=== PATIENT | female | born 1980 | race Two or more races ===

== ENCOUNTER 2018-06-30 19:00 | Emergency (ER) | payer OTHER ==
--- NOTE | 2018-06-30 19:12 | EDPHY ---
H & P Smoking Status: Never smoked Time Seen by Provider: 06/30/18 19:10 HPI/ROS: CHIEF COMPLAINT: Syncope HISTORY OF PRESENT ILLNESS: The patient is a 37-year-old female with no significant past medical history here chief complaint of nausea vomiting diarrhea and 2 syncopal events this afternoon. She states that early this afternoon she started with diffuse nonbloody nonbilious non purulent emesis and diarrhea. He reports that her 3-year-old child has also had vomiting and diarrhea this week. She denies any fever or chills or pain with urination. She denies . She has no history of inflammatory bowel. She denies pain with urination or urinary frequency. She has not use any drugs or alcohol. She is not take any prescribed medication. REVIEW OF SYSTEMS: Constitutional: No fever, no chills. Eyes: No discharge. ENT: No sore throat. Cardiovascular: No chest pain, no palpitations. Respiratory: No cough, no shortness of breath. Gastrointestinal: No abdominal pain, + vomiting. Genitourinary: No hematuria. Musculoskeletal: No back pain. Skin: No rashes. Neurological: No headache. (Aric Mariee) Physical Exam: General Appearance: Alert and no distress. ENT: normal dentition. No tonsillar exudate or swelling. Eyes: Pupils equal and round no injection. Respiratory: Chest is nontender, lungs are clear to auscultation. Cardiac: regular rate and rhythm. No lower extremity edema Gastrointestinal: Abdomen is soft and nontender, no masses, bowel sounds normal. Musculoskeletal: Neck is supple and nontender. Extremities have full range of motion and are nontender without deformity Skin: No rashes or lesions. Neuro: Cranial nerves grossly intact. Ambulatory. (Aric Mariee) Constitutional: Initial Vital Signs Temperature (C) 36.5 C 06/30/18 19:02 Heart Rate 55 L 06/30/18 19:02 Respiratory Rate 06/30/18 19:02 Blood Pressure 73/41 L 06/30/18 19:02 O2 Sat (%) 98 06/30/18 19:02 O2 Delivery Mode Room Air Allergies/Adverse Reactions: No Known Allergies Allergy (Verified 06/30/18 19:02) Home Medications: Medication Instructions Recorded Promethazine HCl [Phenergan 12.5mg 12.5 mg PO Q8 #12 tablet 06/30/18 tab] Medical Decision Making ED Course/Re-evaluation: A 37-year-old female here with 2 syncopal events associated with vomiting and diarrhea today. EKG shows no arrhythmia or signs of WPW, Brugada or ischemia. She is alert and oriented in no acute distress. She feels significantly improved after 2 L of normal saline. She is given no antiemetics and is tolerating orals at time of discharge. This is likely syncopal event due to vomiting and dehydration. I considered acute renal injury, hypovolemia, sepsis , pulmonary embolism, cardiac arrhythmia. (Aric Mariee) Other Provider: The patient was evaluated and managed by the Physician Hemotherapist. I discussed the patient's presentation and course with the midlevel provider with them and agree with the evaluation. My co-signature indicates that I have reviewed this chart and I agree with the findings and plan of care as documented. I am the secondary supervising physician. Patient had 2 episodes of syncope, both related to active vomiting. Her children were ill with vomiting and diarrhea also. EKG demonstrates slightly prolonged QTs. Patient will be discharged with Phenergan and not Zofran to use for her nausea vomiting. (Nina Segal) - Data Points Laboratory Results: Laboratory Results 06/30/18 19:20 06/30/18 19:20 06/30/18 06/30/18 06/30/18 19:20 19:20 19:20 WBC 14.23 10^3/uL H 10^3/uL (3.80-9.50) RBC 4.65 10^6/uL 10^6/uL (4.18-5.33) Hgb 14.8 g/dL g/dL (12.6-16.3) Hct 43.4 % % (38.0-47.0) MCV 93.3 fL fL (81.5-99.8) MCH 31.8 pg pg (27.9-34.1) MCHC 34.1 g/dL g/dL (32.4-36.7) RDW 12.7 % % (11.5-15.2) Plt Count 293 10^3/uL 10^3/uL (150-400) MPV 9.7 fL fL (8.7-11.7) Neut % (Auto) 88.5 % H % (39.3-74.2) Lymph % (Auto) 6.0 % L % (15.0-45.0) [place] % (Auto) 4.6 % % (4.5-13.0) Eos % (Auto) 0.3 % L % (0.6-7.6) Baso % (Auto) 0.2 % L % (0.3-1.7) Nucleat RBC Rel Count 0.0 % % (0.0-0.2) Absolute Neuts (auto) 12.58 10^3/uL H 10^3/uL (1.70-6.50) Absolute Lymphs (auto) 0.86 10^3/uL L 10^3/uL (1.00-3.00) Absolute Monos (auto) 0.66 10^3/uL 10^3/uL (0.30-0.80) Absolute Eos (auto) 0.04 10^3/uL 10^3/uL (0.03-0.40) Absolute Basos (auto) 0.03 10^3/uL 10^3/uL (0.02-0.10) Absolute Nucleated RBC 0.00 10^3/uL 10^3/uL (0-0.01) Immature Gran % 0.4 % % (0.0-1.1) Immature Gran # 0.06 10^3/uL 10^3/uL (0.00-0.10) Sodium 137 mEq/L mEq/L (135-145) Potassium 3.6 mEq/L mEq/L (3.5-5.2) Chloride 102 mEq/L mEq/L (97-110) Carbon Dioxide 24 mEq/l mEq/l (22-31) Anion Gap 11 mEq/L mEq/L (6-14) BUN 21 mg/dL mg/dL (7-23) Creatinine 1.0 mg/dL mg/dL (0.6-1.0) Estimated GFR > 60 Glucose 131 mg/dL H mg/dL (70-100) Calcium 9.1 mg/dL mg/dL (8.5-10.4) Beta HCG, Qual NEGATIVE Medications Given: Discontinued Medications Sodium Chloride (Ns) 1,000 mls @ 0 mls/hr IV ONCE ONE PRN Reason: Wide Open Stop: 06/30/18 19:24 Last Admin: 06/30/18 19:29 Dose: 1,000 mls Departure - Departure Disposition: Home, Routine, Self-Care Clinical Impression: Dehydration, Syncope, Nausea, Prolonged QT interval Condition: Good Instructions: Syncope (ED), Acute Nausea and Vomiting (ED) Additional Instructions: Please follow up with her primary care doctor in the next 2-3 days to discuss the results from the emergency rooms today and you're EKG. If you have continued syncopal events at home or are unable to tolerate fluids or feel worse in any way please return to the ER for further evaluation Referrals: Federica Kevin MD [Primary Care Provider] - As per Instructions Prescriptions: Promethazine HCl [Phenergan 12.5mg tab] 12.5 mg PO Q8 #12 tablet
[2018-06-30] MEDS ORDERED: NS 1,000 ML IV ONE (19:23)
[2018-06-30 19:34] LABS: PLATELET COUNT 293 10^3/uL (150-400)
[2018-06-30 20:48] VITALS: BP 98/40
--- NOTE | 2018-07-07 13:19 | CPEKG ---
Test Reason : OPEN Blood Pressure : / mmHG Vent. Rate : 050 BPM Atrial Rate : 049 BPM P-R Int : 157 ms QRS Dur : 105 ms QT Int : 559 ms P-R-T Axes : 036 151 045 degrees QTc Int : 510 ms Sinus rhythm Probable left atrial enlargement Probable right ventricular hypertrophy Borderline prolonged QT interval Confirmed by Aj Price ([id number]) on 07/07/2018 1:19:28 PM Referred By: Confirmed By:Aj Price
== END 2018-06-30 21:34 | disposition home or self-care (01) ==
DX: R55 Syncope and collapse (principal); E86.0 Dehydration; R11.0 Nausea